=== PATIENT | female | born 1950 | race Caucasian/White ===

== ENCOUNTER 2024-07-23 12:22 | Outpatient (CLI) | payer MEDICARE, BC ==
[2024-07-23 15:26] LABS: Actual Bicarbonate (HCO3a) 19.2 mEq/L (22-28); Analyzer IN Cardio CS ER; Base Excess (BEa) -4.3 mEq/L (-2.0 to +3.0); CO2 Tension 31.2 mmHg (35.0-45.0); Calcium, Ionized (arterial) 1.17 mmol/L (1.12-1.30); Carboxyhemoglobin (COHb) 0.5 gm% (0.0-3.0); Hematocrit-ABG 46 % (36.0-47.0); Hemoglobin (Hb) 15.6 g/dL (12.0-16.0); O2 Tension (PaO2), arterial 73.9 mmHg (> 70.0); Potassium - ABG Lab 4.36 mmol/L (3.70-5.30); Puncture Site Right Radial artery; pH, Arterial 7.406 (7.35-7.45)
== END 2024-07-23 12:23 | disposition home or self-care (01) ==
LOC: CSHCP 12:22
PROVIDERS: ATTEND Internal Medicine Critical Care Medicine
DX: J84.89 Other specified interstitial pulmonary diseases (principal); R91.8 Other nonspecific abnormal finding of lung field; R09.02 Hypoxemia
CPT/HCPCS: 71250; 82330; 82375; 82805; 82947; 83605; 94060; 94618; 94726; 94729